=== PATIENT | female | born 2000 | race Caucasian/White ===

== ENCOUNTER 2025-03-07 02:50 | Inpatient (IN) | payer BC, OTHER ==
[2025-03-07 03:40] VITALS: BMI 27.7
[2025-03-07 04:04] LABS: Fetal Membranes Rupture RUPTURE DETECTED (No Rupture)
[2025-03-07] MEDS ORDERED: hydrALAZINE 20 MG/ML VIAL SLOW IVP PRN ×2 (04:22→13:28)
[2025-03-07] MEDS ORDERED: Acetaminophen 500 MG TAB PO PRN (04:22)
[2025-03-07] MEDS ORDERED: Ibuprofen 800 MG TAB PO PRN (04:22)
[2025-03-07] MEDS ORDERED: Diphenoxylate HCl/Atropine Tablet PO PRN (04:22)
[2025-03-07] MEDS ORDERED: Ondansetron PF 4 MG/2 ML Vial IVP PRN ×3 (04:22→13:28)
[2025-03-07] MEDS ORDERED: Carboprost 250 MCG/ML AMP IM PRN (04:22)
[2025-03-07] MEDS ORDERED: Methylergonovine 0.2 MG/ML VIAL IM PRN ×2 (04:22→13:28)
[2025-03-07] MEDS ORDERED: Tranexamic Acid 1,000 MG/10 ML VIAL IVP PRN (04:22)
[2025-03-07] MEDS ORDERED: Lidocaine 1% (PF) 30 ML VIAL SC PRN (04:22)
[2025-03-07] MEDS ORDERED: Oxytocin 30 units/NS 500 ML 500 ML IV SCH ×2 (04:30→13:28)
[2025-03-07] MEDS: Penicillin G Potassium 5 MILL.UNITS in Sodium Chloride 0.9% 100 ML IVPB SCH (05:10)
[2025-03-07 05:25] LABS: Hematocrit 36.6 % (34.9-44.5); Hemoglobin 12.2 g/dL (12.0-15.5); Mean Corpuscular Hemoglobin 28.5 pg (27.0-33.0); Mean Corpuscular Volume 85.5 fL (81.6-98.3); Platelet Count 172 10x3/uL (150-450); Red Blood Cell (RBC) Count 4.28 10x6/uL (3.90-5.03); White Blood Cell (WBC) Count 11.91 10x3/uL (3.5-10.5)
[2025-03-07] MEDS: fentaNYL/Ropivacaine Epidural 100 ML ONE (05:52)
[2025-03-07 05:58] LABS: Hep B Surf Ag - L&D Non-Reactive S/CO (NonReactive)
[2025-03-07 05:59] LABS: Syphilis Antibody Index 0.07 S/CO (<1.00 Non-Reactive)
[2025-03-07] MEDS ORDERED: diphenhydrAMINE 50 MG/ML VIAL IVP PRN (06:01)
[2025-03-07] MEDS ORDERED: Acetaminophen 325 MG TAB PO PRN (06:01)
[2025-03-07] MEDS ORDERED: Communication Order-Pharmacy FS SCH (06:15)
[2025-03-07] MEDS ORDERED: fentaNYL 2 mcg/Ropivacaine 0.2% Epidural 100 ML CADD EPIDURAL SCH (06:15)
[2025-03-07] MEDS ORDERED: Bupivacaine/Epinephrine 0.25% 30 ML VIAL ONE (09:00)
[2025-03-07] MEDS: Penicillin G 2.5 MILL.units 2.5 MILL.UNITS in Premix 1 BAG IVPB SCH (09:17)
[2025-03-07] MEDS: Oxytocin 30 units/NS 500 ML 500 ML IV SCH (11:55)
[2025-03-07] MEDS ORDERED: diphenhydrAMINE 25 MG CAP PO PRN (13:28)
[2025-03-07] MEDS ORDERED: Milk Of Magnesia 30 ML UDCUP PO PRN (13:28)
[2025-03-07] MEDS ORDERED: Bisacodyl 10 MG SUPP PR PRN (13:28)
[2025-03-07] MEDS ORDERED: Preparation H Ointment 28 GM TUBE PR PRN (13:28)
[2025-03-07] MEDS ORDERED: Lanolin Ointment 7 GM TUBE TOP PRN (13:28)
[2025-03-07] MEDS: Tranexamic Acid 1,000 MG/10 ML VIAL ONE (13:29)
[2025-03-07] MEDS: Oxytocin 30 units/NS 500 ML 500 ML ONE (13:29)
[2025-03-07] MEDS: Methylergonovine 0.2 MG/ML VIAL ONE (13:29)
[2025-03-07] MEDS: Benzocaine-Menthol 82.5 ML CAN TOP PRN (14:23)
[2025-03-07] MEDS: Ibuprofen 800 MG TAB PO SCH (14:23)
[2025-03-07] MEDS: Boostrix 0.5 ML (Tdap) VIAL (>/=7 yrs of age) IM ONE (14:24)
[2025-03-07] MEDS: Ferrous Sulfate 325 MG TAB PO SCH (16:09)
[2025-03-09 07:36] VITALS: BP 111/60; TEMP 98.1
== END 2025-03-09 12:00 | disposition home or self-care (01) | DRG 807 ==
LOC: CSHLD/OP 02:50 → CSHLD 04:15 → CSHPED 13:58
PROVIDERS: ADMIT Family Medicine; ATTEND Family Medicine
PROC: 10E0XZZ Delivery of Products of Conception, External Approach (ICD-10-PCS; principal; 2025-03-07)
PROC: 0KQM0ZZ Repair Perineum Muscle, Open Approach (ICD-10-PCS; 2025-03-07)
PROC: 4A1HXCZ Monitoring of Products of Conception, Cardiac Rate, External Approach (ICD-10-PCS; 2025-03-07)
PROC: 0UQMXZZ Repair Vulva, External Approach (ICD-10-PCS; 2025-03-07)
DX: O42.92 Full-term premature rupture of membranes, unspecified as to length of time between rupture and onset of labor (principal); Z37.0 Single live birth; O99.824 Streptococcus B carrier state complicating childbirth; O70.0 First degree perineal laceration during delivery; Z3A.39 39 weeks gestation of pregnancy; Z79.899 Other long term (current) drug therapy
CPT/HCPCS: 36415; 51702; 84112; 85027; 86780; 86850; 86900; 86901; 87340; 99285; J2540; J2590; J7120